=== PATIENT | female | born 1980 | race Caucasian/White ===

== ENCOUNTER 2021-01-26 19:46 | Emergency (ER) | payer OTHER | END 2021-01-26 22:35 | disposition home or self-care (01) | LOC: ER1 19:46 | DX: S61.212A Laceration without foreign body of right middle finger without damage to nail, initial encounter (principal); F17.210 Nicotine dependence, cigarettes, uncomplicated; W26.8XXA Contact with other sharp object(s), not elsewhere classified, initial encounter | CPT/HCPCS: 12001; 73130; 90471; 90715; 99283 ==